=== PATIENT | female | born 1950 | race Caucasian/White ===

== ENCOUNTER 2019-02-03 03:19 | Inpatient (IN) | payer MEDICARE ==
[~2019-02-03] VITALS: Ht 157.5 cm; Wt 72.0 kg
[2019-02-03 03:53] LABS: BASOPHILS ABSOLUTE AUTO 0.02 K/mm3 (0.00-0.23); BASOPHILS PERCENT AUTO 0 % (0-2); EOSINOPHILS ABSOLUTE AUTO 0.02 K/mm3 (0.00-0.68); EOSINOPHILS PERCENT AUTO 0 % (0-6); Hematocrit 44.4 % (33.0-51.0); Hemoglobin 14.9 g/dL (11.5-16.0); IMMATURE GRAN ABSOLUTE AUTO 0.04 K/mm3 (0.00-0.10); IMMATURE GRAN PERCENT AUTO 0 % (0-1); LYMPHOCYTES PERCENT AUTO 5 % (21-46); MONOCYTES ABSOLUTE AUTO 1.12 K/mm3 (0.16-1.47); MONOCYTES PERCENT AUTO 8 % (4-13); Mean Corpuscular HGB 30.3 pg (26.0-34.0); Mean Corpuscular HGB Conc 33.6 g/dL (31.5-36.5); Mean Corpuscular Volume 90 fL (80-100); Mean Platelet Volume 9.6 fL (9.1-12.4); NEUTROPHILS PERCENT AUTO 87 % (41-73); Platelet Count 303 K/mm3 (150-400); RDW Standard Deviation 46.2 fL (35.1-46.3); Red Blood Cell Count 4.92 M/mm3 (3.80-5.20)
[2019-02-03] MEDS ORDERED: ATOR10 PO (04:00)
[2019-02-03] MEDS ORDERED: CLON.5 PO (04:00)
[2019-02-03] MEDS ORDERED: COMBIVENT RESPIM4 GM INH (04:00)
[2019-02-03] MEDS ORDERED: Pulmicort Fle180 MCG INH (04:01)
[2019-02-03] MEDS ORDERED: ESCI20 PO (04:01)
[2019-02-03 04:18] LABS: Alanine Aminotransfer (ALT/SGP 20 U/L (12-78); Albumin, Blood 3.7 g/dL (3.4-5.0); Albumin/Globulin Ratio 0.9 (0.8-1.8); Alk Phos 108 U/L (50-136); Anion Gap 9 mmol/L (6-16); Aspartate Aminotrans (AST/SGOT 17 U/L (12-37); Bilirubin, Total 0.6 mg/dL (0.1-1.0); Blood Urea Nitrogen 10 mg/dL (8-24); Bun/Creatinine Ratio 12.7 (12.0-20.0); CO2, Blood 28 mmol/L (21-32); Chloride, Blood 103 mmol/L (98-108); Creatinine, Blood 0.79 mg/dL (0.40-1.00); Glomerular Filtration Rate >60 (60-); Glucose, Blood 138 mg/dL (70-99); Potassium, Blood 2.9 mmol/L (3.5-5.5); Sodium, Blood 140 mmol/L (136-145); Total Protein, Blood 7.7 g/dL (6.4-8.2); Troponin I <0.015 ng/mL (0.000-0.040)
[2019-02-03 04:23] LABS: PCO2 Arterial 41.3 mmHg (35-45); PO2 Arterial 67.7 mmHg (80-100); pH Blood Arterial 7.41 (7.35-7.45)
[2019-02-03] MEDS ORDERED: Excedrin Extra1 EACH PO (11:21)
--- NOTE | 2019-02-03 12:08 | NUR ---
Jovana appears to be sleeping comfortably, resting on her left side in bed. Respiratons are even and unlabored, spo2 94% while wearing nasal cannula at 3 l/min. respiratory rate 20/min.
--- NOTE | 2019-02-03 13:42 | NUR ---
Jovana tolerated sitting on the side of the bed to have her clear liquid lunch. She was also able to use the bedside commode with assistance. Urine sent for UA as ordered.
[2019-02-03 14:08] LABS: Source, Urine Clean Catch
[2019-02-03 14:20] LABS: Bilirubin, Urine Neg (Neg); Blood, Urine 2+ (Neg); Glucose Qualitative, Urine Neg (Neg); Ketones, Urine Neg (Neg); Leukocyte Esterase, Urine 1+ (Neg); Nitrite, Urine Neg (Neg); Protein, Urine Neg (Neg); Specific Gravity, Urine 1.015 (1.003-1.022); Urobilinogen, Urine NORM (Normal)
[2019-02-03 14:37] LABS: Appearance, Urine Hazy (Clear); Color, Urine Yellow (P-Yellow)
[2019-02-03 14:38] LABS: Red Blood Cells, Urine 0-2 /hpf (0-2); Squamous Epithelial Cells Mod /hpf (Few)
[2019-02-03 14:39] LABS: Bacteria Few /hpf
--- NOTE | 2019-02-03 17:35 | NUR ---
The pt has been sleeping off and on all day, at times very soundly, This afternoon she has not been wearing the bipap, only oxygen at 3 l/min n.c. delivery. Afebrile, but occasionally diaphoretic while sleeping, and skin warm to the touch. Hypotensive with systolic pressure lowest reading 91 mmHg. Her daughter says that her blood pressure tends to "run low" but she is not aware of an exact value. The pt denies any dizzyness, or lightheadedness when at rest or when getting up to use the bedside commode, which she does frequently with the continuous IV fluids she is receiving at 125 cc/hour. Tolerating a clear liquid diet, and advanced to full liquid this evening by giving her a vanilla ensure which she requested.
--- NOTE | 2019-02-03 20:27 | NUR ---
ASSUMED CARE OF PT AT 1915. REPORT RECEIVED. PT PRESENTS IN BED. HAS JUST RETURNED TO BED AFTER BEING UP TO BEDSIDE COMMODE WITH ONE PERSON ASSIST. PT DEMONSTRATES EXERTIONAL DYSPNEA. WORKED WITH PT ON AFFECTIVE BREATHING TECHNIQUES WHICH HELPS PT RECOVER. PT DEMONSTRATES UNDERSTANDING. DAUGHTER AT BEDSIDE AND IS ATTENTIVE TO PT'S NEEDS. WILL REVIEW CHART AND PLAN OF CARE FOR THIS PT.
--- NOTE | 2019-02-03 21:49 | NUR ---
PT REQUESTS BREAK FROM CPAP MASK AT THIS TIME. DID PLACE O2 PER NASAL CANNULA. PT MAINTAINS > 90 PERCENT SATURATIONS. DAUGHTER TO ROOM IN THIS NIGHT. WILL CONTINUE TO MONITOR PT.
[2019-02-04 04:25] LABS: BASOPHILS ABSOLUTE AUTO 0.01 K/mm3 (0.00-0.23); BASOPHILS PERCENT AUTO 0 % (0-2); EOSINOPHILS PERCENT AUTO 0 % (0-6); IMMATURE GRAN ABSOLUTE AUTO 0.09 K/mm3 (0.00-0.10); IMMATURE GRAN PERCENT AUTO 1 % (0-1); LYMPHOCYTES ABSOLUTE AUTO 0.34 K/mm3 (0.84-5.20); LYMPHOCYTES PERCENT AUTO 3 % (21-46); MONOCYTES ABSOLUTE AUTO 0.35 K/mm3 (0.16-1.47); MONOCYTES PERCENT AUTO 3 % (4-13); Mean Corpuscular HGB 30.8 pg (26.0-34.0); Mean Corpuscular HGB Conc 32.4 g/dL (31.5-36.5); Mean Platelet Volume 10.2 fL (9.1-12.4); NEUTROPHILS ABSOLUTE AUTO 11.82 K/mm3 (1.96-9.15); NEUTROPHILS PERCENT AUTO 94 % (41-73); Platelet Count 225 K/mm3 (150-400); RDW Coefficient Variation 14.6 % (11.7-14.2); RDW Standard Deviation 50.2 fL (35.1-46.3); White Blood Cell Count 12.61 K/mm3 (4.00-11.30)
[2019-02-04 04:29] LABS: Mean Corpuscular Volume 95 fL (80-100)
[2019-02-04 04:46] LABS: Albumin, Blood 2.8 g/dL (3.4-5.0); Anion Gap 3 mmol/L (6-16); Blood Urea Nitrogen 12 mg/dL (8-24); Bun/Creatinine Ratio 22.3 (12.0-20.0); CO2, Blood 27 mmol/L (21-32); Calcium, Blood 8.6 mg/dL (8.5-10.1); Chloride, Blood 112 mmol/L (98-108); Creatinine, Blood 0.54 mg/dL (0.40-1.00); Glomerular Filtration Rate >60 (60-); Glucose, Blood 183 mg/dL (70-99); Phosphorus, Blood 1.8 mg/dL (2.5-4.9); Sodium, Blood 142 mmol/L (136-145)
--- NOTE | 2019-02-04 05:54 | NUR ---
PT HAS BEEN ABLE TO REST THIS NIGHT. HAS BEEN UP TO BEDSIDE COMMODE SEVERAL TIMES WITH ASSIST. DOES BECOME DYSPNEIC. RECOVERS QUICKLY. WEARS CPAP WITH BREAKS DURING THE NIGHT. DENIES COMPLAINTS AT THIS TIME. DAUGHTER ROOMS IN THIS NIGHT. WILL CONTINUE TO MONITOR PT, AND WILL REPORT OFF TO ONCOMING RN.
--- NOTE | 2019-02-04 10:51 | NUR ---
Pt was laying in her bed asleep, but woke to verbal stimuli. Pt's daughter was present and sat next to her bedside. Both were provided space to talk about the indigo background and how it has helped them cope with their struggles. Both appeared grateful for PC support and pt asks for another visit at a later time. Verbal prayer was offered on behalf of the pt for healing and protection. I will remain available.
[2019-02-04] MEDS ORDERED: ASPI81CH PO (13:41)
--- NOTE | 2019-02-04 17:56 | NUR ---
Jovana has been more awake, alert, and conversant today. She was encouraged to increase her activity by getting out of bed to the chair for meals, as well as walking to the bathroom instead of only using the bedside commode, if tolerated. She did tolerate sitting in the chair for her dinner this evening. states that she is feeling better. She is still wearing oxygen at 2 l/min at all times. Encouraging use of incentive spirometer and flutter valve every hour while she is awake. Productive cough in the morning, but less so this afternoon, producing dark yellow thick sputum. threat monitoring analyst has shown normal sinus to sinus tachycardia throughout the shift.
--- NOTE | 2019-02-04 18:38 | NUR ---
Walked into the bathroom from the chair after finishing dinner. She tolerated this fairly well, but did show shortness of breath and mild audible expiratory wheezing after walking back to her bed. She states she is feeling good, however.
[2019-02-05 03:45] LABS: BASOPHILS ABSOLUTE AUTO 0.01 K/mm3 (0.00-0.23); BASOPHILS PERCENT AUTO 0 % (0-2); EOSINOPHILS PERCENT AUTO 0 % (0-6); Hematocrit 37.2 % (33.0-51.0); Hemoglobin 11.9 g/dL (11.5-16.0); IMMATURE GRAN ABSOLUTE AUTO 0.05 K/mm3 (0.00-0.10); IMMATURE GRAN PERCENT AUTO 0 % (0-1); LYMPHOCYTES ABSOLUTE AUTO 0.28 K/mm3 (0.84-5.20); LYMPHOCYTES PERCENT AUTO 2 % (21-46); MONOCYTES ABSOLUTE AUTO 0.51 K/mm3 (0.16-1.47); MONOCYTES PERCENT AUTO 4 % (4-13); Mean Corpuscular HGB 30.8 pg (26.0-34.0); Mean Corpuscular Volume 96 fL (80-100); Mean Platelet Volume 9.9 fL (9.1-12.4); NEUTROPHILS ABSOLUTE AUTO 12.46 K/mm3 (1.96-9.15); NEUTROPHILS PERCENT AUTO 94 % (41-73); Platelet Count 275 K/mm3 (150-400); RDW Coefficient Variation 14.9 % (11.7-14.2); RDW Standard Deviation 52.2 fL (35.1-46.3); Red Blood Cell Count 3.86 M/mm3 (3.80-5.20); White Blood Cell Count 13.31 K/mm3 (4.00-11.30)
[2019-02-05 04:01] LABS: Albumin, Blood 2.7 g/dL (3.4-5.0); Anion Gap 3 mmol/L (6-16); Blood Urea Nitrogen 12 mg/dL (8-24); Bun/Creatinine Ratio 17.8 (12.0-20.0); CO2, Blood 27 mmol/L (21-32); Calcium, Blood 8.9 mg/dL (8.5-10.1); Chloride, Blood 112 mmol/L (98-108); Creatinine, Blood 0.67 mg/dL (0.40-1.00); Glomerular Filtration Rate >60 (60-); Glucose, Blood 162 mg/dL (70-99); Phosphorus, Blood 2.9 mg/dL (2.5-4.9); Potassium, Blood 4.7 mmol/L (3.5-5.5); Sodium, Blood 142 mmol/L (136-145)
--- NOTE | 2019-02-05 06:09 | NUR ---
SHIFT SUMMARY PATIENT PLEASENT AND COOPERATIVE THROUGHOUT THE NIGHT. HOWEVER, PATIENT DID EXPERIANCE ANXIETY OCCATIONALLY THROUGHOUT THE NIGHT. DAUGHTER STAYED THE NIGHT AT THE BEDSIDE AND HELPED TO EASE PATIENT'S ANXIETY. PATIENT AWAKE FOR THE FIRST PART OF THE NIGHT BUT APPEARED TO SLEEP WELL THROUGHOUT THE SECOND HALF OF THE NIGHT. PATIENT UP TO THE BATHROOM SEVERAL TIMES WITH SBA. IV FLUIDS RUNNING PER ORDERS. PATIENT USED THE BIPAP FOR SEVERAL HOURS AT THE BEGINNING OF THE NIGHT AND THEN REFUSED USING IT THE REST OF THE NIGHT AND REMAINED ON 2L O2 FOR THE REST OF THE NIGHT. WILL CONTINUE TO MONITOR PATIENT AND REPORT TO ONCOMING RN.
--- NOTE | 2019-02-05 14:03 | NUR ---
PT NOW MED NO TELE STATUS. ATEEMPT TO CALL REPORT TO [facility]GE [facility]INNER. ROOM IS NOT READY SHE WILL CALL WHEN IT IS. PT UPDATED ON WAIT TIME. VERBALIZED UNDERSTANDING.
--- NOTE | 2019-02-05 14:30 | NUR ---
PT. ARRIVED TO FLOOR VIA WC FROM PCU-14. PT. SOB AND GASPING FOR AIR, OXYGEN ATTACHED TO WALL AND SETTLED PT. IN BED.
--- NOTE | 2019-02-05 19:15 | NUR ---
PT. SITTING IN BED AT THIS TIME. DAUGHTER AT BEDSIDE. PT. IS A STANDBY ASSIST TO BR. BECOMES VERY DYSPNIC AND HAS TO BE ENCOURAGED TO BREATHE IN THROUGH THE NOSE AND OUT THROUGH THE MOUTH. ENC PT. TO USE THE IS AND FLUTTER VALVE. PT'S HR TENDS TO RUN IN THE [address] TEENS[address] CONT[address]UOUS BIX IN PLACE, O2 AT 2-3 L/NC.
--- NOTE | 2019-02-06 00:33 | NUR ---
HOSPITALIST DR LOU ORDERED MELATONIN 3 MG X ONE FOR SLEEP PER PATIENT/FAMILY.
--- NOTE | 2019-02-06 04:19 | NUR ---
SHIFT SUMMARY PATIENT WENT FROM EATING CAKE WITH DAUGHTER TO BECOMING MORE ANXIOUS LEADING TO DYSPNEA AND INCREASED HR 103-120. DAUGHTER REQUEST KLONOPIN .5 MG PER EMAR FOR ANXIETY. DAUGHTER EXTREMELY HELPFUL IN CALMING PATIENT DOWN STAYING THE SHIFT. NEXT DAUGHTER AND PATIENT REQUEST SLEEP AID AND HOSPITALIST DR LOU ORDERED MELATONIN 3 MG X ONE. PATIENT ABLE TO GET TO SLEEP. BP WNL/AFEBRILE. GUAIFENESIN GIVEN X ONE FOR COUGH. RT IN FOR BREATHING TX. AXOX 3 AND SBA TO BR. CALL LIGHT IN REACH. BED IN LOWEST POSITION. WILL CONTINUE TO MONITOR UNTIL DAY SHIFT NURSE ASSUMES CARE.
[2019-02-06 05:00] LABS: BASOPHILS ABSOLUTE AUTO 0.01 K/mm3 (0.00-0.23); BASOPHILS PERCENT AUTO 0 % (0-2); EOSINOPHILS PERCENT AUTO 0 % (0-6); Hematocrit 37.3 % (33.0-51.0); IMMATURE GRAN ABSOLUTE AUTO 0.07 K/mm3 (0.00-0.10); IMMATURE GRAN PERCENT AUTO 1 % (0-1); LYMPHOCYTES ABSOLUTE AUTO 0.59 K/mm3 (0.84-5.20); LYMPHOCYTES PERCENT AUTO 8 % (21-46); MONOCYTES ABSOLUTE AUTO 0.58 K/mm3 (0.16-1.47); MONOCYTES PERCENT AUTO 8 % (4-13); Mean Corpuscular HGB 29.9 pg (26.0-34.0); Mean Corpuscular HGB Conc 32.2 g/dL (31.5-36.5); Mean Corpuscular Volume 93 fL (80-100); Mean Platelet Volume 9.5 fL (9.1-12.4); NEUTROPHILS ABSOLUTE AUTO 6.34 K/mm3 (1.96-9.15); NEUTROPHILS PERCENT AUTO 84 % (41-73); Platelet Count 279 K/mm3 (150-400); RDW Coefficient Variation 14.7 % (11.7-14.2); RDW Standard Deviation 50.4 fL (35.1-46.3); Red Blood Cell Count 4.02 M/mm3 (3.80-5.20); White Blood Cell Count 7.59 K/mm3 (4.00-11.30)
[2019-02-06 05:16] LABS: Anion Gap 6 mmol/L (6-16); Blood Urea Nitrogen 13 mg/dL (8-24); Bun/Creatinine Ratio 22.3 (12.0-20.0); CO2, Blood 30 mmol/L (21-32); Calcium, Blood 8.7 mg/dL (8.5-10.1); Chloride, Blood 109 mmol/L (98-108); Creatinine, Blood 0.58 mg/dL (0.40-1.00); Glomerular Filtration Rate >60 (60-); Glucose, Blood 105 mg/dL (70-99); Potassium, Blood 3.7 mmol/L (3.5-5.5); Sodium, Blood 145 mmol/L (136-145)
--- NOTE | 2019-02-06 07:45 | NUR ---
PT. SLEEPING, PT'S DAUGHTER REFUSES TO LET ANYONE WAKE HER UP. SAY SHE DIDN'T SLEEP ALL NIGHT AND SHE NEEDS HER REST. WOULD NOT ALLOW ANYONE TO DO CARE I.E...VITAL SIGNS, BREATHING TREATMENT, ASSESSMENT.
--- NOTE | 2019-02-06 19:14 | NUR ---
PT. LAYING IN BED DAUGHTER AT BEDSIDE. DOULCOLAX TABLET GIVEN FOR REPORT OF CONSTIPATION. HAD "3-4 RABBITT PELLETS " PER DAUGHTER. PT. SLEPT MOST OF THE DAY. HAS DENIED PAIN ALL DAY.
--- NOTE | 2019-02-07 04:45 | NUR ---
SHIFT SUMMARY PATIENT HAD SHOWER THIS SHIFT PER OFFICE CASHIER WITH ASSIST BY DAUGHTER AND OFFICE CASHIER. [place] AND SBA TO BR. ON CONTINUOUS PULSE OXIMETRY HR 98-120 BASELINE. PIV REMAINS INTACT. ON 2L O2 NC. DENIES PAIN AND N/V. NO ANXIETY THIS SHIFT VS LAST NOC SHIFT. GAUIFENESIN GIVEN FOR COUGH PER EMAR. RT IN FOR BREATHING TX. DAUGHTER STAYS IN ROOM ENTIRE SHIFT HELPING WITH CARE AND ANXIETY EVENTS. CALL LIGHT IN REACH. BED IN LOWEST POSITION. WILL CONTINUE TO MONITOR UNTIL DAY SHIFT NURSE ASSUMES CARE.
[2019-02-07] MEDS ORDERED: ALBU3IS INH (09:35)
[2019-02-07] MEDS ORDERED: PRED20 PO (09:37)
--- NOTE | 2019-02-07 11:01 | NUR ---
DISCHARGE PT IS A/O X3, [place], STATE SHORTNESS OF BREATH IMPROVING, STATE CHR COUGH NOT NEW. O2 @ 2L w CONT BIOX, 90-95% DR MARQUEZ IN TO SEE PT & DAUGHTER, STATE OK FOR D/C HOME TODAY AFTER HOME O2 EVAL & HIGH RISK COPD ED. ORDERS FAXED TO [facility]/REQUEST. HOME O2 EVAL COMPLETED, [facility] CONSULTANT NOTIFIED TO ARRANGE PORTABLE & HOME O2. NEBULIZER ORDER FAXED TO [facility], [place]. IV D/C INTACT. D/C INSTRUCT REVIEWED w PT'S DAUGHTER WHO IS CAREGIVER @ HOME.
--- NOTE | 2019-02-07 13:26 | NUR ---
[facility] IN TO DELIVER PORTABLE O2. PT'S DAUGHTER GWENDOLYN STATE THEY ARE CONTINUING TO AWAIT TRANSPORTATION HOME FROM HER SISTER.
== END 2019-02-07 15:00 | disposition home or self-care (01) | DRG 189 ==
LOC: ER 03:19 → PCU 04:54 → MEDS 02-05 14:28 → ENPENDDIS 02-07 08:26 → MEDS 02-07 15:00
PROVIDERS: Emergency Medicine; Family Medicine; Internal Medicine; ADMIT Internal Medicine
PROC: 5A09357 Assistance with Respiratory Ventilation, Less than 24 Consecutive Hours, Continuous Positive Airway Pressure (ICD-10-PCS; principal; 2019-02-02)
DX: J96.01 Acute respiratory failure with hypoxia (principal); J44.1 Chronic obstructive pulmonary disease with (acute) exacerbation; E44.0 Moderate protein-calorie malnutrition; F41.9 Anxiety disorder, unspecified; E87.6 Hypokalemia; E66.01 Morbid (severe) obesity due to excess calories; E83.39 Other disorders of phosphorus metabolism; E88.09 Other disorders of plasma-protein metabolism, not elsewhere classified; I95.9 Hypotension, unspecified; F32.9 Major depressive disorder, single episode, unspecified; F17.210 Nicotine dependence, cigarettes, uncomplicated; R73.9 Hyperglycemia, unspecified; T38.0X5A Adverse effect of glucocorticoids and synthetic analogues, initial encounter; Z86.73 Personal history of transient ischemic attack (TIA), and cerebral infarction without residual deficits
CPT/HCPCS: 36415; 36600; 71045; 71046; 80048; 80053; 80069; 81001; 82803; 83036; 83605; 83880; 84145; 84484; 85025; 87040; 87070; 87086; 87205; 93005; 93010; 94640; 94644; 94660; 94761; 94762; 96365; 96375; 99285-25; A9270; J0456; J0696; J1650; J2060; J2405; J2920; J3010; J3480; J7030; J7050; J7512